=== PATIENT | female | born 1960 | race Caucasian/White ===

== ENCOUNTER 2020-01-01 04:37 | Emergency (ER) | payer OTHER ==
[2020-01-01] MEDS ORDERED: ACETAMINOPHEN 325 MG TABLET PO ONE (05:17)
--- NOTE | 2020-01-01 07:23 | RADIOLOGY REPORT (SQ) ---
EXAM: X-ray wrist three or more views, right CLINICAL DATA: 59-year-old female with right wrist pain TECHNICAL DATA: Three x-ray views of the right wrist were performed on 01/01/2020 at 7:01 AM. COMPARISONS: None FINDINGS: There is no evidence of fracture or dislocation. There is no significant arthritis or degenerative change. No focal lytic or sclerotic bone lesions are seen. Bone mineralization is normal. No focal soft tissue abnormalities are identified. IMPRESSION: No evidence of acute osseous injury involving the right wrist.
[2020-01-01] MEDS ORDERED: KETOROLAC TROMETHAMINE INJ/PF 30 MG/1 ML SDV IV ONE (08:18)
[2020-01-01] MEDS ORDERED: METHYLPREDNISOLONE INJ 125 MG/2 ML SDV IV ONE (08:18)
--- NOTE | 2020-01-01 08:19 | ER Document Report ---
ED Medical Screen (RME) - General Chief Complaint: Wrist Pain Stated Complaint: RIGHT HAND PAIN Time Seen by Provider: 01/01/20 07:01 Primary Care Provider: LINDA RUSSELL PA-C [Primary Care Provider] - Follow up as needed Mode of Arrival: Ambulatory Information source: Patient Notes: 59-year-old female patient with history of hypertension presenting to the emergency department with acute onset right hand pain. Patient reports yesterday at approximately 2 PM she started having a severe pain in the dorsal surface of her right hand. She reports pain is worse with any movement and runs up into her forearm and upper arm into her shoulder. She denies any recent trauma or overuse. She denies any fever or chills. She does report gout runs in her family but she personally has never had gout. She took a Percocet yesterday with no relief of her pain. Slightly swollen dorsal surface of right hand. Cap refill less than 3 seconds. Pain with flexion and extension of third through fifth digits. I have greeted and performed a rapid initial assessment of this patient. A comprehensive ED assessment and evaluation of the patient, analysis of test results and completion of the medical decision making process will be conducted by additional ED providers. I have specifically instructed the patient or family members with the patient to immediately return to any nursing staff should anything change in the patient's condition or with their chief complaint. - Related Data Allergies/Adverse Reactions: amitriptyline [From Elavil] Allergy (Verified 01/01/20 05:11) Penicillins Allergy (Verified 01/01/20 05:11) Past Medical History - Social History Frequency of alcohol use: Occasional Drug Abuse: None Physical Exam - Vital signs Vitals: Temp Pulse Resp BP Pulse Ox 98.5 F 77 17 143/67 H 97 01/01/20 04:46 01/01/20 04:46 01/01/20 04:46 01/01/20 04:46 01/01/20 04:46 Course - Vital Signs Vital signs: Temp Pulse Resp BP Pulse Ox 98.5 F 77 17 143/67 H 97 01/01/20 04:46 01/01/20 04:46 01/01/20 04:46 01/01/20 04:46 01/01/20 04:46 Doctor's Discharge - Discharge Referrals: RUSSELL,LINDA, PA-C [Primary Care Provider] - Follow up as needed
[2020-01-01 08:48] LABS: ABSOLUTE BASOPHILS # (AUTO) 0.2 10^3/uL (0.0-0.2); ABSOLUTE EOSINOPHILS # (AUTO) 0.2 10^3/uL (0.0-0.6); ABSOLUTE MONOCYTES (AUTO) 1.1 10^3/uL (0.1-1.4); ABSOLUTE NEUT (AUTO) 8.2 10^3/uL (1.7-8.2); BASOPHILS % (AUTO) 1.4 % (0-2); EOSINOPHILS % (AUTO) 1.5 % (0-6); HEMATOCRIT 38.8 % (36.0-47.0); HEMOGLOBIN 13.2 g/dL (12.0-15.5); LYMPHOCYTES % (AUTO) 23.8 % (13-45); MEAN CORPUSCULAR HEMOGLOBIN 30.6 pg (27.0-33.4); MEAN CORPUSCULAR VOLUME 90 fl (80-97); MONOCYTES % (AUTO) 8.6 % (3-13); PLATELET COUNT 326 10^3/uL (150-450); RED BLOOD COUNT 4.32 10^6/uL (3.72-5.28); RED CELL DISTRIBUTION WIDTH 14.5 % (11.5-14.0); SEGMENTED NEUTROPHILS % (AUTO) 64.7 % (42-78); TOTAL CELLS COUNTED % (AUTO) 100 %; WHITE BLOOD COUNT 12.7 10^3/uL (4.0-10.5)
[2020-01-01 09:08] LABS: ALKALINE PHOSPHATASE 58 U/L (38-126); ANION GAP 8 (5-19); ASPARTATE AMINO TRANSFERASE 24 U/L (14-36); BILIRUBIN,DIRECT 0.2 mg/dL (0.0-0.4); BILIRUBIN,TOTAL 0.3 mg/dL (0.2-1.3); BLOOD UREA NITROGEN 20 mg/dL (7-20); CALCIUM 9.4 mg/dL (8.4-10.2); CARBON DIOXIDE 25 mmol/L (22-30); CHLORIDE 107 mmol/L (98-107); GLUCOSE 97 mg/dL (75-110); POTASSIUM 4.2 mmol/L (3.6-5.0); TOTAL PROTEIN 6.9 g/dL (6.3-8.2); URIC ACID 6.4 mg/dL (2.5-7.5)
[2020-01-01] MEDS ORDERED: OXYCODONE-ACETAMINOPHEN 5-325 MG TABLET PO ONE (09:39)
--- NOTE | 2020-01-01 09:45 | ER Document Report ---
ED Hand/Wrist Injury - General Chief Complaint: Wrist Pain Stated Complaint: RIGHT HAND PAIN Time Seen by Provider: 01/01/20 07:01 Primary Care Provider: LINDA RUSSELL PA-C [Primary Care Provider] - Follow up as needed Mode of Arrival: Ambulatory - HPI Notes: 59-year-old female with past medical history of Marlene's thyroid disease, hypertension to the emergency department with complaints of right hand dorsal swelling that began acutely yesterday. She states there is mild redness. She states that it hurts quite a bit. Denies any fevers or chills the pain runs up her arm. She states that she has a history of high blood pressure and there is family history of gout but she is never had a gout flare. She denies any injuries. She denies any insect bites or wounds. She is right-hand dominant. She has on hand at home for her chronic back pain Percocet and she did take one yesterday. She states it did not help all that much with her pain. - Related Data Allergies/Adverse Reactions: amitriptyline [From Elavil] Allergy (Verified 01/01/20 05:11) Penicillins Allergy (Verified 01/01/20 05:11) Past Medical History - General Information source: Patient - Social History Smoking Status: Never Smoker Frequency of alcohol use: Occasional Drug Abuse: None Family History: Hypertension, Other - Gout Review of Systems - Review of Systems Constitutional: denies: Chills, Fever EENT: No symptoms reported Cardiovascular: denies: Chest pain, Palpitations, Heart racing, Dizziness, Lightheaded Gastrointestinal: denies: Abdomen distended, Abdominal pain, Diarrhea, Nausea, Vomiting Genitourinary: No symptoms reported Musculoskeletal: See HPI, Joint pain, Joint swelling Skin: Change in color - Mild redness to the back of the hand Neurological/Psychological: No symptoms reported -: Yes All other systems reviewed and negative Physical Exam - Vital signs Vitals: Temp Pulse Resp BP Pulse Ox 98.5 F 77 17 143/67 H 97 01/01/20 04:46 01/01/20 04:46 01/01/20 04:46 01/01/20 04:46 01/01/20 04:46 Interpretation: Normal - General General appearance: Appears well, Alert In distress: Mild Notes: Mild pain discomfort - HEENT Head: Normocephalic, Atraumatic Eyes: Normal Pupils: PERRL Neck: Normal, Supple. No: Lymphadenopathy - Respiratory Respiratory status: No respiratory distress Chest status: Nontender Breath sounds: Normal. No: Rales, Rhonchi, Wheezing Chest palpation: Normal - Cardiovascular Rhythm: Regular Heart sounds: Normal auscultation Murmur: No - Abdominal Inspection: Normal Distension: No distension Bowel sounds: Normal Tenderness: Nontender Organomegaly: No organomegaly - Extremities Hand: Tender, Swelling - To the dorsum of the right hand there is edema. There is also some mild erythema and warmth. There is tenderness to palpation. She also has mild tenderness to palpation in the forearm but is nontender to palpation in the right shoulder, right elbow. Radial pulses are intact and equal. She can wiggle all toes. Handgrip on the right side is reduced to 4 out of 5 likely due to pain and swelling. No snuffbox tenderness bilaterally. Cap refill is less than 2 seconds throughout - Neurological Neuro grossly intact: Yes Cognition: Normal Orientation: AAOx4 Awa Coma Scale Eye Opening: Spontaneous [place] Coma Scale Verbal: Oriented Awa Coma Scale Motor: Obeys Commands Awa Coma Scale Total: 15 Speech: Normal Cranial nerves: Normal Cerebellar coordination: Normal Motor strength normal: LUE, RUE, LLE, RLE Additional motor exam normals: Equal postbed stitcher Sensory: Normal - Psychological Associated symptoms: Normal affect, Normal mood - Skin Skin Temperature: Warm Skin Moisture: Dry Skin Color: Normal Course - Re-evaluation Re-evalutation: 01/01/20 09:42 Impression: Right hand swelling, right hand pain. Lab work is not concerning. X-ray is reassuring. Suspect that this is most likely a gout flare even though uric acid is 6.4 versus an infectious etiology. Plan will be to send her home w ith steroids and indomethacin. She has Percocet at home and feels like she has enough to take as well to supplement the steroids and the indomethacin. I will have her follow-up with orthopedist for further evaluation. I have given her strict return precautions to return immediately if worsening pain, worsening swelling, worsening redness, fevers. - Vital Signs Vital signs: Temp Pulse Resp BP Pulse Ox 98.5 F 77 17 143/67 H 97 01/01/20 04:46 01/01/20 04:46 01/01/20 04:46 01/01/20 04:46 01/01/20 04:46 - Laboratory Result Diagrams: 01/01/20 08:30 01/01/20 08:30 Laboratory results interpreted by me: 01/01/20 08:30 WBC 12.7 H RDW 14.5 H - Diagnostic Test Radiology reviewed: Image reviewed, Reports reviewed Discharge - Discharge Clinical Impression: Swelling of right hand, Right hand pain Hypertension Qualifiers: Hypertension type: essential hypertension Qualified Code(s): I10 - Essential (primary) hypertension Condition: Stable Disposition: HOME, SELF-CARE Instructions: Gout ([facility]), Gout Diet ([facility]) Additional Instructions: Today in the emergency department he came in for right hand swelling and pain. Your x-rays were normal and your lab work was reassuring. Suspect this is likely a gout flare. Please take the steroids and the indomethacin as prescribed. You may take 1-2 of your at home Percocet every 4 hours for further pain control. You may elevate and ice the hand 3 times a day for 20 minutes. Please follow-up with the orthopedist listed. Please return immediately if you have any worsening pain, worsening swelling, worsening redness, fever. Prescriptions: Indomethacin [Indocin 50 mg Capsule] 50 mg PO BID #15 capsule Methylprednisolone [Medrol Dosepack (4 mg/Tab) 21 Tab/Dosepak] 4 mg PO ASDIR PRN #21 tab.[id number] PRN Reason: Referrals: LINDA RUSSELL PA-C [Primary Care Provider] - Follow up in 3-5 days JAMEY CAGE MD [ACTIVE STAFF] - Follow up in 1 week (for orthopedic follow up)
[2020-01-01 10:28] VITALS: BP 141/69
== END 2020-01-01 10:28 | disposition home or self-care (01) ==
LOC: ER 04:37
DX: M79.89 Other specified soft tissue disorders (principal); M79.641 Pain in right hand; L53.9 Erythematous condition, unspecified; M25.539 Pain in unspecified wrist; M25.40 Effusion, unspecified joint; I10 Essential (primary) hypertension; M54.9 Dorsalgia, unspecified; G89.29 Other chronic pain; Z79.891 Long term (current) use of opiate analgesic; Z88.8 Allergy status to other drugs, medicaments and biological substances; Z88.0 Allergy status to penicillin; Z82.69 Family history of other diseases of the musculoskeletal system and connective tissue
CPT/HCPCS: 99284; 96374; 96375; 36415; 84550; 85025; 80053; 73110; J2930; J1885